=== PATIENT | male | born 1975 | race Caucasian/White ===

== ENCOUNTER 2020-02-27 09:47 | Outpatient (CLI) | payer OTHER, SELFPAY ==
--- NOTE | ~2020-02-27 | MR_ITS ---
EXAMINATION: MR brain/brain stem wo con EXAM DATE: 02/27/2020 10:43 INDICATION: Seizure. TECHNIQUE: Magnetic resonance imaging (MRI) of the brain/brain stem obtained without contrast. Sagitt al T1, axial diffusion, gradient echo (T2*), T1, T2, FLAIR sequences obtained. Seizure protocol was utilized including high-resolution coronal images through the hippocampi. There is no prior study fo r comparison. FINDINGS: The hippocampi are symmetric and are without signal abnormality identified. There are no g ray matter heterotopias identified or evidence of cortical dysplasia. There are no areas of restrict ed diffusion to suggest acute infarction. There is no acute hemorrhage seen on the T2*, a hemosideri n sensitive sequence. No intraparenchymal brain mass. The ventricles are normal in size. There are no extra-axial collections. Flow voids are seen in the cerebral arteries on the T2-weighted sequence s consistent with their expected patency. The orbits are unremarkable. Soft tissue is unremarkable. Mild medial periosteal thickening. IMPRESSION: 1. Unremarkable brain MRI examination. Reviewed, dictated and finalized at location A. [employer]
--- NOTE | 2020-02-29 10:03 | P.NEURO_ITS ---
Neurology EEG Report General Information Date of Study: 02/27/20 TEST eeg DIAGNOSIS seizures CONDITION OF RECORDING awake drowsy and sleep EEG NUMBER [id number] CLINICAL HISTORY patient reported he has had 2 episodes of seizure-like activity 1st one was witnessed he was banging his head on the table and 2nd episode he just spaced out for a while. EEG DESCRIPTION basic resting occipital frequency consists of low to medium voltage 8 to 10 her tz pers econd alpha admixed with low-voltage 15 to 18 hertz per second beta activity. bilateral symmetrical sleep activity seen during sleep with intermittent EKG artifacts. hyperventilation not done .photic stimulation produced normal drive. non paroxysmal. nonfocal. nonlateralizing IMPRESSION no significant abnormalities noted
== END 2020-02-27 09:48 | disposition home or self-care (01) ==
LOC: ANHIMG 09:52
PROVIDERS: PCP Family Medicine; Visit Provider Psychiatry & Neurology Neurology
DX: R56.9 Unspecified convulsions (principal)
CPT/HCPCS: 70551; 95816

== ENCOUNTER 2021-04-02 08:37 | Emergency (ER) | payer OTHER, SELFPAY ==
[2021-04-02 08:53] VITALS: BP 127/71; PULSE 82; RESP 18; TEMP 36.3; O2SAT 100
--- NOTE | 2021-04-02 09:24 | ED.GENADULT ---
HPI - General Adult General Chief complaint: Ear Stated complaint: ear pain Source: patient Mode of arrival: ambulatory Limitations: no limitations History of Present Illness HPI narrative: Patient is a 45-year-old male who presents to the [facility] via POV for evaluation of left ear pain that has been present for approximately 3 weeks. Additionally, he reports his pain to be constant and sharp in nature. No relief with Tylenol. Heat improves pain. Nothing worsens symptoms. Of note, patient reports he tested positive for Covid approximately 2 weeks ago and states his ear pain worsened about a week into having Covid. Related Data Home Medications Medication Instructions Recorded Confirmed warfarin 5 mg PO DAILY 03/31/19 04/02/21 bupropion HCl 300 mg PO DAILY 04/02/21 04/02/21 buspirone 15 mg PO DAILY 04/02/21 04/02/21 clonidine HCl 0.2 mg PO DAILY 04/02/21 04/02/21 escitalopram oxalate 10 mg PO DAILY 04/02/21 04/02/21 levetiracetam 500 mg PO DAILY 04/02/21 04/02/21 quetiapine 100 mg PO DAILY 04/02/21 04/02/21 Allergies Allergy/AdvReac Type Severity Reaction Status Date / Time morphine Allergy Mild HIVES Verified 04/02/21 09:19 Review of Systems Review of Systems: Pertinent negatives fever, chills, sweats, change in appetite, poor p.o. intake, malaise, headache, rhinorrhea, sinus problems, tinnitus, vertigo, lightheadedness, hearing loss, muffled hearing, ear drainage, nausea, vomiting, sore throat, cough, shortness of breath, lymphadenopathy, chest pain, heart palpitations, and heart murmur. [facility] Past Medical History Medical History (Updated 04/02/21 @ 09:49 by Yolanda Schrader, [employer], ) Anxiety Depression Pulmonary embolism Seizure disorder Comments I have reviewed and agree with the patient's past medical, surgical, social, and family hx as documented by the RN. There is no relevant family history pertinent to the presenting complaint. Exam Narrative: GENERAL: Well-appearing, well-nourished, and in no acute distress. HEAD: Normocephalic, atraumatic. No sinus tenderness or facial swelling appreciated. EYES: PERRLA and EOMI. No evidence of erythema, swelling, or drainage. ENT: Unable to visualize left TM secondary to moderate otitis externa. Right TM and ear canal normal. Nares clear, no rhinorrhea or epistaxis. Bilateral turbinates without erythema/ swelling. Mucous membranes moist and pink. Uvula is midline without erythema and swelling. Posterior pharynx is normal. Breath odor and voice normal. NECK: Supple. No Lymphadenopathy or nuchal rigidity appreciated. CHEST: Bilateral lung jha are clear to auscultation. No respiratory distress. No evidence of cough or pleuritic cp upon examination. HEART: Regular rate and rhythm. No murmur, gallop, or rub heard. EXTREMITIES: Normal range of motion. No edema. SKIN: Warm, dry, no rash. NEURO: No focal deficits. Alert and oriented x3. Course Course Emergency Course: Amoxicillin for empirical treatment of otitis media since poor visualization of left TM Vital Signs Vital signs: Vital Signs Temperature 97.3 F L 04/02/21 08:53 Pulse Rate 82 04/02/21 08:53 Respiratory Rate 18 04/02/21 08:53 Blood Pressure 127/71 04/02/21 08:53 Pulse Oximetry 100 04/02/21 08:53 Temperature 97.3 F L 04/02/21 08:53 Pulse Rate 82 04/02/21 08:53 Respiratory Rate 18 04/02/21 08:53 Blood Pressure 127/71 04/02/21 08:53 Pulse Oximetry 100 04/02/21 08:53 Reviewed Medical Decision Making Differential Diagnosis Differential Diagnosis: Otitis externa, barotrauma, eustachian tube dysfunction, AOM, OME, herpes zoster infection, acute mastoiditis, malignancy Vital Signs Vital Signs: Vital Signs Temperature 97.3 F L 04/02/21 08:53 Pulse Rate 82 04/02/21 08:53 Respiratory Rate 18 04/02/21 08:53 Blood Pressure 127/71 04/02/21 08:53 Pulse Oximetry 100 04/02/21 08:53 Temperature 97.3 F L 04/02/21 08:53 Pulse Rat
== END 2021-04-02 09:47 | disposition home or self-care (01) ==
PROVIDERS: Emergency Provider Nurse Practitioner Family; PCP Family Medicine
DX: H66.92 Otitis media, unspecified, left ear (principal); H60.502 Unspecified acute noninfective otitis externa, left ear; F41.9 Anxiety disorder, unspecified; F32.A Depression, unspecified; Z86.711 Personal history of pulmonary embolism; G40.909 Epilepsy, unspecified, not intractable, without status epilepticus; Z79.01 Long term (current) use of anticoagulants; Z86.16 Personal history of COVID-19
CPT/HCPCS: 99213; G0463

== ENCOUNTER 2022-04-08 09:24 | Emergency (ER) | payer OTHER, SELFPAY ==
[2022-04-08 10:36] VITALS: BP 106/62; PULSE 88; RESP 16; TEMP 36.2; O2SAT 98
--- NOTE | 2022-04-08 10:46 | ED.URI ---
HPI - URI/Sore Throat General Chief Complaint: Upper Respiratory Infection Stated Complaint: flu sx Time Seen by Provider: 04/08/22 10:47 Source: patient and RN notes reviewed Mode of arrival: ambulatory Limitations: no limitations History of Present Illness HPI Narrative: 46 y/o male presented for c/o fever up to 101, congestion, cough for 3 days. Endorses nausea, vomiting and decreased appetite. Denies abdominal pain, sob, wheezing, cp, palpitations. Taking Tylenol and ibuprofen for symptoms. Endorses sick contacts with unknown illness. Smokes 1/2ppd. Not vaccinated for covid/flu. Hx seizures, PE, congenital heart defect/repair, anxiety/depression. MD elicited complaint: cough Related Data Home Medications Medication Instructions Recorded Confirmed warfarin 5 mg tablet 5 mg PO DAILY 03/31/19 04/08/22 bupropion HCl 300 mg 24 hr tablet, 300 mg PO DAILY 04/02/21 04/08/22 extended release buspirone 15 mg tablet 15 mg PO DAILY 04/02/21 04/08/22 clonidine HCl 0.2 mg tablet 0.2 mg PO DAILY 04/02/21 04/08/22 escitalopram oxalate 10 mg tablet 10 mg PO DAILY 04/02/21 04/08/22 levetiracetam 500 mg tablet 500 mg PO DAILY 04/02/21 04/08/22 quetiapine 100 mg tablet 100 mg PO DAILY 04/02/21 04/08/22 Allergies Allergy/AdvReac Type Severity Reaction Status Date / Time morphine Allergy Mild HIVES Verified 04/08/22 10:29 Review of Systems Review of Systems: per HPI [facility] Past Medical History Medical History Anxiety Depression Pulmonary embolism Seizure disorder Exam Narrative: GENERAL: Ill-appearing, nontoxic EYES: PERRLA, conjunctivae clear ENT: Mucous membranes moist. TMs pearly zaragoza with dull light reflex bilaterally; no tragal tenderness. Oropharynx erythematous without lesions or exudate CHEST: Clear to auscultation, breath sounds equal. No wheezing, rhonchi, rales, or stridor. No respiratory distress, speaks in full sentences. HEART: Regular rate and rhythm. Murmur noted. SKIN: Warm, dry, no rash. MUSC: kyphosis. NEURO: Alert and oriented x3. PSYCH: Normal mood and affect Course Course Emergency Course: Patient is aware of diagnosis, understands and agrees to treatment plan. Anticipatory guidance given. Patient agrees to follow-up as directed and is aware of reasons to seek care at the emergency department. Portions of this record may have been created with voice recognition software Level of Care: Express Care Visit Vital Signs Vital signs: Vital Signs Temperature 97.2 F L 04/08/22 10:36 Pulse Rate 88 04/08/22 10:36 Respiratory Rate 16 04/08/22 10:36 Blood Pressure 106/62 04/08/22 10:36 Pulse Oximetry 98 04/08/22 10:36 Oxygen Delivery Room Air 04/08/22 10:36 Temperature 97.2 F L 04/08/22 10:36 Pulse Rate 88 04/08/22 10:36 Respiratory Rate 16 04/08/22 10:36 Blood Pressure 106/62 04/08/22 10:36 Pulse Oximetry 98 04/08/22 10:36 Oxygen Delivery Room Air 04/08/22 10:36 reviewed MDM - URI/Sore Throat MDM Narrative Medical decision making narrative: Result of COVID reviewed with patient. Advised supportive measures and signs/symptoms to go to the ER. Pt is appropriate for outpt treatment and f/u. Differential Diagnosis Differential diagnosis: Likely upper respiratory infection, sinusitis and viral infection Discharge Plan Discharge Clinical Impression: Viral infection Patient Disposition: Home, Self-Care Condition: Stable Instructions: Viral Syndrome (ED) Additional Instructions: COVID test was negative today. You should avoid crowds until you are fever free for 24 hours without the use of fever reducing medications, or the symptoms are improved Rest. Drink plenty of fluids. Tylenol 1000mg every 8 hours as needed for pain/fever Recommend Flonase spray and Zyrtec (or Claritin/Cindy) for sinus pressure/congestion over the counter Cough syrup may cause drowsiness; avoid driving or gianni
== END 2022-04-08 11:25 | disposition home or self-care (01) ==
PROVIDERS: Emergency Provider Nurse Practitioner Family
DX: B34.9 Viral infection, unspecified (principal); Z20.822 Contact with and (suspected) exposure to COVID-19; F41.9 Anxiety disorder, unspecified; F32.A Depression, unspecified; G40.909 Epilepsy, unspecified, not intractable, without status epilepticus; Z86.711 Personal history of pulmonary embolism; Z79.01 Long term (current) use of anticoagulants; F17.200 Nicotine dependence, unspecified, uncomplicated; Z28.310 Unvaccinated for COVID-19
CPT/HCPCS: 87426; 99213; C9803; G0463

== ENCOUNTER 2022-07-18 19:41 | Emergency (ER) | payer OTHER, SELFPAY ==
--- NOTE | 2022-07-18 19:42 | ED.WOUNDLAC ---
HPI - Wound/Laceration General Chief Complaint: Skin/Abscess/Foreign Body Stated Complaint: Right Hand Laceration Time Seen by Provider: 07/18/22 19:42 Source: patient Mode of arrival: ambulatory Limitations: no limitations History of Present Illness HPI narrative: Bruno is a 46-year-old male patient presenting to the clinic today with complaints of right hand laceration. He reports he cut his proximal volar aspect of the right ring finger at work on a piece of metal. Tetanus status is unknown. Bleeding is controlled. Patient is taking Coumadin. Related Data Home Medications Medication Instructions Recorded Confirmed warfarin 5 mg tablet 5 mg PO DAILY 03/31/19 07/18/22 bupropion HCl 300 mg 24 hr tablet, 300 mg PO DAILY 04/02/21 07/18/22 extended release buspirone 15 mg tablet 15 mg PO DAILY 04/02/21 07/18/22 clonidine HCl 0.2 mg tablet 0.2 mg PO DAILY 04/02/21 07/18/22 escitalopram oxalate 10 mg tablet 10 mg PO DAILY 04/02/21 07/18/22 lamotrigine 100 mg tablet 100 mg PO DAILY 07/18/22 07/18/22 quetiapine 200 mg tablet 200 mg PO DAILY 07/18/22 07/18/22 quetiapine 400 mg tablet 400 mg PO DAILY 07/18/22 07/18/22 Allergies Allergy/AdvReac Type Severity Reaction Status Date / Time No Known Allergies Allergy Verified 07/18/22 19:58 Review of Systems Review of Systems: Pertinent positives per HPI. Patient denies any fever, chills, rash, headache, visual changes, dizziness, cough, runny nose, sore throat, shortness of breath, chest pain, palpitations, nausea, vomiting, diarrhea, constipation, abdominal pain, or any urinary issues. PMFSH Past Medical History Medical History Anxiety Depression Pulmonary embolism Seizure disorder Comments At the time of my signature, I reviewed and agree with the nursing past medical, surgical, social, and family history. There is no relevant family history pertinent to the patient complaint. Exam Narrative: General: Well-developed, well nourished, in no apparent distress Head: Normocephalic, atraumatic. Cardio: Regular rate and rhythm, s1 and s2 normal, no murmur appreciated. Resp: Clear to auscultation bilaterally, no rhonchi, rales, wheezing or rubs. Integumentary: Ebro, warm, and dry, 1 cm flap skin laceration to the proximal volar aspect of the right 4th finger. Bleeding is controlled Course Course Emergency Course: Portions of this record may have been created with voice recognition software. Level of Care: Express Care Visit Vital Signs Vital signs: Vital Signs Temperature 37.0 C 07/18/22 19:50 Pulse Rate 106 H 07/18/22 19:50 Respiratory Rate 18 07/18/22 19:50 Blood Pressure 119/74 07/18/22 19:50 Pulse Oximetry 98 07/18/22 19:50 Oxygen Delivery Room Air 07/18/22 19:50 Temperature 37.0 C 07/18/22 19:50 Pulse Rate 106 H 07/18/22 19:50 Respiratory Rate 18 07/18/22 19:50 Blood Pressure 119/74 07/18/22 19:50 Pulse Oximetry 98 07/18/22 19:50 Oxygen Delivery Room Air 07/18/22 19:50 Vital signs reviewed Procedures Laceration Laceration 1: Date: 07/18/22 Site: hand (Right proximal volar aspect ring finger) Side (If applicable): right Size (cm): 1 Description: flap Depth: simple, single layer Local Anesthetic: lidocaine 1% Amount of anesthesia used (mL): 2 Pre-repair: wound explored and irrigated ====== Skin Level ====== Skin layer closed with: nylon Size (cm): 5-0 Number of sutures: 2 Technique: simple, interrupted ====== Subcutaneous Layer ====== ====== Muscle Layer ====== ====== Tendon Layer ====== Dressing: Verbal consent obtained for laceration repair. Risk and benefits explained and patient voiced understanding. Area was cleansed with Techni care and a 25 gauge needle was then used to instill (2) ml of 1% lidocaine without epi into the wou
[2022-07-18 19:50] VITALS: BP 119/74; PULSE 106; RESP 18; TEMP 37; O2SAT 98
[2022-07-18] MEDS: TETANUS,DIPHTHERIA,AC PERTUSSIS ADULT (0.5 ML) BOOSTRIX IM (19:55)
== END 2022-07-18 20:25 | disposition home or self-care (01) ==
LOC: EXPCOLL 19:46
PROVIDERS: Emergency Provider Nurse Practitioner Family
DX: S61.214A Laceration without foreign body of right ring finger without damage to nail, initial encounter (principal); Z79.01 Long term (current) use of anticoagulants; Z23 Encounter for immunization; W26.8XXA Contact with other sharp object(s), not elsewhere classified, initial encounter; Y99.0 Civilian activity done for income or pay
CPT/HCPCS: 12001; 90471; 90715; 99212; G0463

== ENCOUNTER 2022-07-25 14:18 | Emergency (ER) | payer OTHER, SELFPAY ==
[2022-07-25 14:20] VITALS: BP 100/60; PULSE 98; RESP 18; TEMP 36.8; O2SAT 98
--- NOTE | 2022-07-25 14:33 | ED.WOUNDLAC ---
HPI - Wound/Laceration General Chief Complaint: Wound/Laceration Stated Complaint: stitches removal Time Seen by Provider: 07/25/22 14:26 Source: patient Mode of arrival: ambulatory Limitations: no limitations History of Present Illness HPI narrative: Patient presents today for suture removal. He had 2 sutures placed on 07/18/2022 at [facility] after cutting his right hand at work. Denies any difficulties with the sutures and states that is healing well. Related Data Home Medications Medication Instructions Recorded Confirmed warfarin 5 mg tablet 5 mg PO DAILY 03/31/19 07/25/22 clonidine HCl 0.2 mg tablet 0.2 mg PO DAILY 04/02/21 07/25/22 escitalopram oxalate 10 mg tablet 10 mg PO DAILY 04/02/21 07/25/22 lamotrigine 100 mg tablet 100 mg PO DAILY 07/18/22 07/25/22 quetiapine 200 mg tablet 200 mg PO DAILY 07/18/22 07/25/22 quetiapine 400 mg tablet 400 mg PO DAILY 07/18/22 07/25/22 Allergies Allergy/AdvReac Type Severity Reaction Status Date / Time No Known Allergies Allergy Verified 07/25/22 14:25 Review of Systems Review of Systems: CONSTITUTIONAL: Denies body aches, fever, chills, or sweats. EYES: Denies visual changes, redness, or discharge. ENT: Denies rhinorrhea, congestion, sore throat, or otalgia. CARDIOVASCULAR: Denies chest pain, palpitations, or edema. RESPIRATORY: Denies cough or dyspnea. GASTROINTESTINAL: Denies abdominal pain, nausea, vomiting, or diarrhea. GENITOURINARY: Denies dysuria or hematuria. SKIN: Denies rash, itching. + right hand laceration MUSCULOSKELETAL: Denies back pain, joint pain, or myalgia. NEUROLOGIC: Denies headache, numbness, tingling, or weakness. PSYCH: Denies depression or anxiety. [facility] Past Medical History Medical History Anxiety Depression Pulmonary embolism Seizure disorder Comments At time of signature, I have reviewed and agree with nursing past medical, surgical, social and family history unless otherwise noted. Please see nursing chart for further information. There is no relevant family history pertinent to the presenting complaint Exam Narrative: GENERAL: Well-appearing, well-nourished, and in no acute distress. HEAD: Normocephalic, atraumatic. EYES: EOMI. No redness or drainage. Conjunctivae normal. ENT: Mucous membranes pink and moist. NECK: Normal AROM. CHEST: No respiratory distress. EXTREMITIES: Normal range of motion. No edema. SKIN: Warm, dry, no rash. Capillary refill normal. Normal skin turgor. Two intact sutures at the base of the right 4th finger on the palmar aspect. No signs of infection. NEURO: No focal deficits. Alert and oriented x3. Gait steady. PSYCH: Normal affect. No signs of depression or anxiety. Course Course Level of Care: Express Care Visit Procedures Other Procedure Procedure 1: Other Procedure: Two sutures removed successfully. Patient tolerated procedure well. MDM - Wound/Laceration MDM Narrative Medical decision making narrative: Sutures removed successfully. No signs of infection. No prescription medications indicated at this time. Anticipatory guidance given. Differential Diagnosis Differential diagnosis: Likely laceration, abscess and other (Suture removal) Critical Care Time Critical Care Time Critical Care Time: No Discharge Plan Discharge Clinical Impression: Encounter for removal of sutures Patient Disposition: Home, Self-Care Condition: Stable Instructions: Stitches Removal (ED) Additional Instructions: Your sutures have been successfully removed. There are no signs of infection present. Follow-up with your PCP with any concerns. Prescriptions: No Action clonidine HCl 0.2 mg tablet 0.2 mg PO DAILY escitalopram oxalate 10 mg tablet 10 mg PO DAILY quetiapine 200 mg tablet 200 mg PO DAILY lamotrigine 100 mg tablet 100 mg PO DAILY quetiapine 400 mg tablet 400 mg PO MARBELLA
== END 2022-07-25 14:43 | disposition home or self-care (01) ==
PROVIDERS: Emergency Provider Nurse Practitioner
DX: Z48.02 Encounter for removal of sutures (principal)
CPT/HCPCS: 99211; G0463

== ENCOUNTER 2022-08-24 10:14 | Emergency (ER) | payer OTHER, SELFPAY ==
[2022-08-24 10:21] VITALS: BP 103/58; PULSE 81; RESP 12; TEMP 36.9; O2SAT 99
--- NOTE | 2022-08-24 11:01 | ED.SKABFB ---
HPI - Skin/Abscess/Foreign Bdy General Chief complaint: Dental/Oral Stated complaint: Lip Pain Time Seen by Provider: 08/24/22 11:02 Source: patient Mode of arrival: ambulatory History of Present Illness HPI narrative: 46-year-old male presented for complaint of left lower facial pain and swelling since yesterday. Endorses pain with opening the mouth and eating. Endorses broken teeth throughout. States symptoms are similar to when he had 'cellulitis' a few years ago. He does not have a dentist. Taking ibuprofen for pain and using Orajel mouthwash. Denies n/v/d/f/c. Hx PE, seizure; taking warfarin. Related Data Home Medications Medication Instructions Recorded Confirmed warfarin 5 mg tablet 5 mg PO DAILY 03/31/19 08/24/22 clonidine HCl 0.2 mg tablet 0.2 mg PO DAILY 04/02/21 08/24/22 escitalopram oxalate 10 mg tablet 10 mg PO DAILY 04/02/21 08/24/22 lamotrigine 100 mg tablet 100 mg PO DAILY 07/18/22 08/24/22 quetiapine 200 mg tablet 200 mg PO DAILY 07/18/22 08/24/22 quetiapine 400 mg tablet 400 mg PO DAILY 07/18/22 08/24/22 Allergies Allergy/AdvReac Type Severity Reaction Status Date / Time No Known Allergies Allergy Verified 08/24/22 10:27 Review of Systems Review of Systems: CONSTITUTIONAL: Denies body aches, fever, chills ENT: Denies rhinorrhea, congestion, sore throat, or otalgia. Reports left lower jaw pain/swelling CARDIOVASCULAR: Denies chest pain, palpitations RESPIRATORY: Denies cough or dyspnea. SKIN: Denies rash, itching, or wounds. MUSCULOSKELETAL: Denies myalgia. NEUROLOGIC: Denies headache, numbness, tingling, or weakness. [facility] Past Medical History Medical History Anxiety Depression Pulmonary embolism Seizure disorder Comments At time of signature, I have reviewed and agree with nursing past medical, surgical, social and family history unless otherwise noted. Please see nursing chart for further information. There is no relevant family history pertinent to the presenting complaint Exam Narrative: GENERAL: Appears in pain; no acute distress. HEAD: Normocephalic, Left lower jaw swelling without erythema or fluctuance EYES: EOMI. No redness or drainage. Conjunctivae normal. ENT: Dental pain to left lower jaw, tender with palpation, multiple broken/missing teeth and caries throughout. Pain with opening mouth. Maintaining secretions. Mucous membranes pink and moist. TMs normal bilaterally. Throat normal. Uvula midline. NECK: Normal AROM. No lymphadenopathy. CHEST: Clear to auscultation. HEART: Regular rate and rhythm. No murmur appreciated. SKIN: Warm, dry, no rash. Normal skin turgor. NEURO: Alert and oriented x3. Gait steady. Course Course Emergency Course: Patient is aware of diagnosis, understands and agrees to treatment plan. Anticipatory guidance given. Patient agrees to follow-up as directed and is aware of reasons to seek care at the emergency department. Portions of this record may have been created with voice recognition software Level of Care: Express Care Visit Vital Signs Vital signs: Vital Signs Temperature 98.5 F 08/24/22 10:21 Pulse Rate 81 08/24/22 10:21 Respiratory Rate 12 08/24/22 10:21 Blood Pressure 103/58 L 08/24/22 10:21 Pulse Oximetry 99 08/24/22 10:21 Oxygen Delivery Room Air 08/24/22 10:21 Temperature 98.5 F 08/24/22 10:21 Pulse Rate 81 08/24/22 10:21 Respiratory Rate 12 08/24/22 10:21 Blood Pressure 103/58 L 08/24/22 10:21 Pulse Oximetry 99 08/24/22 10:21 Oxygen Delivery Room Air 08/24/22 10:21 MDM - Skin/Abscess/Foreign Bdy MDM Narrative Medical decision making narrative: Patient reported concern for facial cellulitis. Suspect left lower dental abscess due to multiple broken teeth and caries, tender throughout left gumline. There are no focal signs of space occupying lesions that are compromising to the airway; no dysphagia, odynoph
== END 2022-08-24 11:17 | disposition home or self-care (01) ==
PROVIDERS: Emergency Provider Nurse Practitioner Family
DX: K04.7 Periapical abscess without sinus (principal); F41.9 Anxiety disorder, unspecified; F32.A Depression, unspecified; G40.909 Epilepsy, unspecified, not intractable, without status epilepticus; Z86.711 Personal history of pulmonary embolism; Z79.01 Long term (current) use of anticoagulants
CPT/HCPCS: 99213; G0463

== ENCOUNTER 2023-04-10 09:12 | Emergency (ER) | payer OTHER, SELFPAY ==
[2023-04-10 09:26] VITALS: BP 135/71; PULSE 96; RESP 16; TEMP 38.3; O2SAT 96
--- NOTE | 2023-04-10 09:43 | ED.NAVMDI ---
HPI - Nausea/Vomiting/Diarrhea General Chief complaint: Nausea/Vomiting/Diarrhea Stated complaint: fever,throwing up,aches Time Seen by Provider: 04/10/23 09:43 Source: patient and RN notes reviewed Mode of arrival: ambulatory Limitations: no limitations History of Present Illness HPI Narrative: 47-year-old male presented for complaint of nausea and vomiting with fever and body aches for 5 days. He has been unable to keep any food down. He is attempting water and V-8 fruit juice but vomits often. Last emesis was this morning. Also reports bilateral flank pain and dark urine. Not taking anything for symptoms. Denies sob, wheezing, cp, palpitations or lethargy. Smokes 1/2ppd. Endorses sick coworkers. Related Data Home Medications Medication Instructions Recorded Confirmed warfarin 5 mg tablet 5 mg PO DAILY 03/31/19 04/10/23 clonidine HCl 0.2 mg tablet 0.2 mg PO DAILY 04/02/21 04/10/23 escitalopram oxalate 10 mg tablet 10 mg PO DAILY 04/02/21 04/10/23 lamotrigine 100 mg tablet 100 mg PO DAILY 07/18/22 04/10/23 quetiapine 200 mg tablet 200 mg PO DAILY 07/18/22 04/10/23 quetiapine 400 mg tablet 400 mg PO DAILY 07/18/22 04/10/23 Allergies Allergy/AdvReac Type Severity Reaction Status Date / Time No Known Allergies Allergy Verified 04/10/23 09:19 Review of Systems Review of Systems: CONSTITUTIONAL: Reports body aches, fever, chills ENT: Denies rhinorrhea, congestion CARDIOVASCULAR: Denies chest pain, palpitations, or edema. RESPIRATORY: Denies cough or dyspnea. GASTROINTESTINAL: Endorses nausea, vomiting Denies abdominal pain, diarrhea, hematochezia, melena, hematemesis GENITOURINARY: Denies dysuria, hematuria reports bilateral CVA tenderness. SKIN: Denies rash, itching, or wounds. MUSCULOSKELETAL: Denies joint pain NEUROLOGIC: Denies headache, numbness, tingling, or weakness. All systems reviewed & are unremarkable except as noted in HPI and below PMFSH Past Medical History Medical History (Updated 04/10/23 @ 14:31 by Sakshi Villanueva APRN) Anxiety Depression Pulmonary embolism Seizure disorder Surgical History Surgical History (Updated 12/29/23 @ 09:54 by Sakshi Villanueva APRN) History of open heart surgery Social History Social History (Updated 04/10/23 @ 09:54 by Sakshi Villanueva APRN) Smoking packs per day: 0.5 Smoking cigarettes per day: 10.0 Smoking status: Current every day smoker Comments At time of signature, I have reviewed and agree with nursing past medical, surgical, social and family history unless otherwise noted. Please see nursing chart for further information. There is no relevant family history pertinent to the presenting complaint Exam Narrative: GENERAL: ill-appearing, no acute distress EYES: Conjunctivae normal. ENT: Mucous membranes pink and moist. CHEST: No respiratory distress. Clear to auscultation. panting HEART: Regular rate and rhythm. No murmur appreciated. Normal peripheral pulses. ABDOMEN: abd soft, nondistended, normal active bowel sounds. Tender abdomen, generalized; mild guarding no rebound tenderness, asymmetry. Bilateral CVA tenderness. EXTREMITIES: Normal range of motion. No edema. Severe scoliosis SKIN: Warm, dry, no rash. Capillary refill normal. NEURO: No focal deficits. Alert and oriented x3. Course Course Emergency Course: Patient is aware of diagnosis, understands and agrees to treatment plan. Anticipatory guidance given. Patient agrees to follow-up as directed and is aware of reasons to seek care at the emergency department. Portions of this record may have been created with voice recognition software Level of Care: Express Care Visit Vital Signs Vital signs: Vital Signs Temperature 100.9 F H 04/10/23 09:26 Pulse Rate 96 04/10/23 09:26 Respiratory Rate 16 04/10/23 09:26 Blood Pressure 135/71 04/10/23 09:26 Pulse Oximetry 96 04/10/23 09:26 Oxygen Delivery Room Air 04/10/23 09:26 Temperature 1
[2023-04-10] MEDS: ONDANSETRON HCL ODT 4 MG TABLET SUBLINGUAL (10:04)
== END 2023-04-10 10:42 | disposition short-term general hospital (02) ==
PROVIDERS: Emergency Provider Nurse Practitioner Family
DX: U07.1 COVID-19 (principal); R11.10 Vomiting, unspecified; F17.210 Nicotine dependence, cigarettes, uncomplicated; F41.9 Anxiety disorder, unspecified; F32.A Depression, unspecified; G40.909 Epilepsy, unspecified, not intractable, without status epilepticus; Z86.711 Personal history of pulmonary embolism
CPT/HCPCS: 87426; 87804; 99213; A9270; C9803; G0463

== ENCOUNTER 2023-08-15 08:57 | Emergency (ER) | payer OTHER, SELFPAY ==
[2023-08-15 09:08] VITALS: BP 128/81; PULSE 77; RESP 16; TEMP 35.8; O2SAT 99
--- NOTE | 2023-08-15 09:17 | ED.BACK ---
HPI - Back Pain/Injury General Chief Complaint: Back Pain/Injury Stated Complaint: Back pain work note Time Seen by Provider: 08/15/23 09:10 Source: patient Mode of arrival: ambulatory Limitations: no limitations History of Present Illness HPI Narrative: Bruno is a 47-year-old male patient presenting to the clinic today with complaints of chronic right-sided thoracic back pain. Patient suffers from kyphosis. 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 States he had a call in to work today due to the back pain. He denies any saddle anesthesia or loss of bowel or bladder. He denies any injury to his back. States he is really just needing a work note for today as he called in. Denies any other concerns. Related Data Home Medications Medication Instructions Recorded Confirmed warfarin 5 mg tablet 5 mg PO DAILY 03/31/19 08/15/23 clonidine HCl 0.2 mg tablet 0.2 mg PO DAILY 04/02/21 08/15/23 lamotrigine 100 mg tablet 100 mg PO DAILY 07/18/22 08/15/23 quetiapine 200 mg tablet 200 mg PO DAILY 07/18/22 08/15/23 quetiapine 400 mg tablet 400 mg PO DAILY 07/18/22 08/15/23 escitalopram oxalate 20 mg tablet 20 mg PO DAILY 08/15/23 08/15/23 Allergies Allergy/AdvReac Type Severity Reaction Status Date / Time No Known Allergies Allergy Verified 08/15/23 08:59 Review of Systems Review of Systems: Pertinent positives per HPI. Patient denies any fever, chills, rash, headache, visual changes, dizziness, cough, runny nose, sore throat, shortness of breath, chest pain, palpitations, nausea, vomiting, diarrhea, constipation, abdominal pain, or any urinary issues. [facility] Past Medical History Medical History Anxiety Depression Pulmonary embolism Seizure disorder Surgical History Surgical History History of open heart surgery Social History Social History Smoking packs per day: 0.5 Smoking cigarettes per day: 10.0 Smoking status: Current every day smoker Comments At the time of my signature, I reviewed and agree with the nursing past medical, surgical, social, and family history. There is no relevant family history pertinent to the patient complaint. Exam Narrative: General: Well-developed, well nourished, in no apparent distress Head: Normocephalic, atraumatic. Cardio: Regular rate and rhythm, s1 and s2 normal, no murmur appreciated. Resp: Clear to auscultation bilaterally, no rhonchi, rales, wheezing or rubs. Musculoskeletal: Kyphosis over the thoracic spine, tender to palpation over the right thoracic spine over the paraspinal musculature, discomfort with flexion and extension of the thoracic spine, muscle strength strong and equal, peripheral pulse strong, no edema, no cyanosis, normal gait and station Course Course Emergency Course: Portions of this record may have been created with voice recognition software. Level of Care: Express Care Visit Vital Signs Vital signs: Vital Signs Temperature 35.8 C L 08/15/23 09:08 Pulse Rate 77 08/15/23 09:08 Respiratory Rate 16 08/15/23 09:08 Blood Pressure 128/81 08/15/23 09:08 Pulse Oximetry 99 08/15/23 09:08 Oxygen Delivery Room Air 08/15/23 09:08 Temperature 35.8 C L 08/15/23 09:08 Pulse Rate 77 08/15/23 09:08 Respiratory Rate 16 08/15/23 09:08 Blood Pressure 128/81 08/15/23 09:08 Pulse Oximetry 99 08/15/23 09:08 Oxygen Delivery Room Air 08/15/23 09:08 Vital signs reviewed MDM - Back Pain/Injury MDM Narrative Medical decision making narrative: At the time of visit patient is resting comfortably on the exam table. Patient appears to be nontoxic. Plan: I suspect patient has chronic back pain due to kyphosis. Work note was given. Supportive measures were discussed with the patient and they voiced understanding discharge instruct
== END 2023-08-15 09:27 | disposition home or self-care (01) ==
PROVIDERS: Emergency Provider Nurse Practitioner Family
DX: G89.29 Other chronic pain (principal); M54.6 Pain in thoracic spine; F17.210 Nicotine dependence, cigarettes, uncomplicated; F41.9 Anxiety disorder, unspecified; F32.A Depression, unspecified; G40.909 Epilepsy, unspecified, not intractable, without status epilepticus; Z86.711 Personal history of pulmonary embolism
CPT/HCPCS: 99212; G0463

== ENCOUNTER 2023-09-26 12:20 | Emergency (ER) | payer OTHER, SELFPAY ==
--- NOTE | 2023-09-26 12:24 | ED.URI ---
HPI - URI/Sore Throat General Chief Complaint: Fever Stated Complaint: fever,bodyaches Time Seen by Provider: 09/26/23 12:35 Source: patient and RN notes reviewed Mode of arrival: ambulatory Limitations: no limitations History of Present Illness HPI Narrative: 48-year-old male presents with concern for fever and body aches. He denies sore throat, cough, nasal congestion, rhinorrhea, headache, stomachache, nausea, vomiting, diarrhea. He reports he has taken Tylenol. MD elicited complaint: fever Related Data Home Medications Medication Instructions Recorded Confirmed warfarin 5 mg tablet 5 mg PO DAILY 03/31/19 09/26/23 clonidine HCl 0.2 mg tablet 0.2 mg PO DAILY 04/02/21 09/26/23 lamotrigine 100 mg tablet 100 mg PO DAILY 07/18/22 09/26/23 quetiapine 200 mg tablet 200 mg PO DAILY 07/18/22 09/26/23 quetiapine 400 mg tablet 400 mg PO DAILY 07/18/22 09/26/23 escitalopram oxalate 20 mg tablet 20 mg PO DAILY 08/15/23 09/26/23 Allergies Allergy/AdvReac Type Severity Reaction Status Date / Time No Known Allergies Allergy Verified 09/26/23 12:36 Review of Systems Review of Systems: CONSTITUTIONAL: Reports malaise, fever. EYES: Denies visual changes, redness, or discharge. ENT: Denies rhinorrhea, congestion, sinus pain, otalgia and sore throat. CARDIOVASCULAR: Denies chest pain, palpitations, or edema. RESPIRATORY: Denies cough. Denies dyspnea. GASTROINTESTINAL: Denies abdominal pain, nausea, vomiting, diarrhea SKIN: Denies rash or itching. MUSCULOSKELETAL: Reports myalgia. NEUROLOGIC: Denies headache. All systems reviewed & are unremarkable except as noted in HPI and below PMFSH Past Medical History Medical History Anxiety Depression Pulmonary embolism Seizure disorder Surgical History Surgical History History of open heart surgery Social History Social History Smoking packs per day: 0.5 Smoking cigarettes per day: 10.0 Smoking status: Current every day smoker Comments At time of signature, agree with nursing past medical, surgical, social and family history. There is no relevant family history pertinent to the presenting complaint Exam Narrative: GENERAL: Well-appearing, well-nourished, and in no acute distress. HEAD: Normocephalic EYES: PERRLA, conjunctivae clear ENT: Nares clear. Mucous membranes moist. TM pearly zaragoza with sharp light reflex bilaterally; no tragal tenderness. Oropharynx not erythematous without lesions. Tonsils not enlarged and without exudate, no drooling, no hoarseness, no trismus, uvula midline. NECK: Supple. No lymphadenopathy CHEST: Clear to auscultation, breath sounds equal. No wheezing, rhonchi, rales, or stridor. No respiratory distress, speaks in full sentences. HEART: Regular rate and rhythm. No murmur heard. SKIN: Warm, dry, no rash. NEURO: Alert and oriented x3. PSYCH: Normal mood and affect Course Course Emergency Course: Patient is aware of diagnosis, understands and agrees to treatment plan. Anticipatory guidance given. Patient agrees to follow-up as directed and is aware of reasons to seek care at the emergency department. Portions of this record may have been created with voice recognition software Level of Care: Express Care Visit Vital Signs Vital signs: Reviewed. MDM - URI/Sore Throat MDM Narrative Medical decision making narrative: Differential diagnosis considered: Keith virus, strep pharyngitis, allergic rhinitis, upper respiratory tract infection, sinusitis, rhinosinusitis, nasopharyngitis. viral pharyngitis, otitis media, otitis externa, pneumonia, bronchitis, viral cough syndrome, viral syndrome, and influenza. Exam findings show no acute concerns or changes; patient is non-toxic appearing and is in no distress. Patient is appropriate for outpatient treatment and
[2023-09-26 12:34] VITALS: BP 106/69; PULSE 86; RESP 16; TEMP 36.9; O2SAT 98
== END 2023-09-26 12:49 | disposition home or self-care (01) ==
PROVIDERS: Emergency Provider Nurse Practitioner
DX: B34.9 Viral infection, unspecified (principal); F17.210 Nicotine dependence, cigarettes, uncomplicated; F41.9 Anxiety disorder, unspecified; F32.A Depression, unspecified; G40.909 Epilepsy, unspecified, not intractable, without status epilepticus; Z86.711 Personal history of pulmonary embolism
CPT/HCPCS: 99211; G0463

== ENCOUNTER 2024-01-23 08:18 | Emergency (ER) | payer SELFPAY ==
[2024-01-23 08:27] VITALS: BP 126/67; PULSE 68; RESP 20; TEMP 36.5; O2SAT 98
--- NOTE | 2024-01-23 08:43 | ED.DENTAL ---
HPI - Dental/Oral General Chief complaint: Dental/Oral Stated complaint: Dental Pain Time Seen by Provider: 01/23/24 08:38 Mode of arrival: ambulatory Limitations: no limitations History of Present Illness HPI Narrative: 48-year-old male presents with concern for left lower dental pain. Reports he woke up with a foul taste in his mouth this morning. Reports he has had some facial swelling. He denies fever or difficulty swallowing. Reports chronic problems with his teeth. MD Complaint: tooth pain Related Data Allergies Allergy/AdvReac Type Severity Reaction Status Date / Time No Known Allergies Allergy Verified 01/23/24 08:21 Review of Systems Review of Systems: CONSTITUTIONAL: Denies malaise, chills, sweats, or fever. EYES: Denies visual changes ENT: Denies rhinorrhea, congestion, sinus pain, otalgia or sore throat. Reports left lower dental pain CARDIOVASCULAR: Denies chest pain, palpitations RESPIRATORY: Denies cough or dyspnea. SKIN: Denies rash or itching. MUSCULOSKELETAL: Denies myalgia. NEUROLOGIC: Denies numbness, weakness, or headache. All systems reviewed & are unremarkable except as noted in HPI and below PMFSH Past Medical History Medical History Anxiety Depression Pulmonary embolism Seizure disorder Surgical History Surgical History History of open heart surgery Social History Social History Smoking packs per day: 0.5 Smoking cigarettes per day: 10.0 Smoking status: Current every day smoker Comments At time of signature, agree with nursing past medical, surgical, social and family history. There is no relevant family history pertinent to the presenting complaint Exam Narrative: GENERAL: Well-appearing, well-nourished, and in no acute distress. HEAD: Normocephalic, atraumatic. EYES: PERRLA, sclera clear ENT: Nares clear, turbinates pink, no rhinorrhea or epistaxis. Mucous membranes moist. TM pearly zaragoza with sharp light reflex bilaterally; no tragal tenderness. Oropharynx without erythema or lesions. Tonsils not enlarged and without exudate. Missing teeth, broken teeth, caries. Left cheek swelling noted NECK: Supple. No lymphadenopathy. CHEST: No respiratory distress. Speaks in full sentences. HEART: Regular rate and rhythm. SKIN: Warm, dry, no visible rash. NEURO: Alert and oriented x3. PSYCH: Normal mood and affect Course Course Emergency Course: Patient is aware of diagnosis, understands and agrees to treatment plan. Anticipatory guidance given. Patient agrees to follow-up as directed and is aware of reasons to seek care at the emergency department. Portions of this record may have been created with voice recognition software Level of Care: Express Care Visit Vital Signs Vital signs: Vital Signs Temperature 97.7 F 01/23/24 08:27 Pulse Rate 68 01/23/24 08:27 Respiratory Rate 20 01/23/24 08:27 Blood Pressure 126/67 01/23/24 08:27 Pulse Oximetry 98 01/23/24 08:27 Oxygen Delivery Room Air 01/23/24 08:27 Temperature 97.7 F 01/23/24 08:27 Pulse Rate 68 01/23/24 08:27 Respiratory Rate 20 01/23/24 08:27 Blood Pressure 126/67 01/23/24 08:27 Pulse Oximetry 98 01/23/24 08:27 Oxygen Delivery Room Air 01/23/24 08:27 Reviewed. MDM - Dental/Oral MDM Narrative Medical decision making narrative: I evaluated this in the [facility] care. History is obtained from patient who is an independent historian and physical exam was performed.? Available medical records were reviewed. ? Exam findings and relevant testing show no acute concerns or changes; patient is non-toxic appearing and is in no distress. Patients pain and complaint coupled with physical findings are consistant with dentalgia. There are no focal signs of space occupying lesions that are compro
== END 2024-01-23 08:55 | disposition home or self-care (01) ==
PROVIDERS: Emergency Provider Nurse Practitioner
DX: K08.89 Other specified disorders of teeth and supporting structures (principal); F17.210 Nicotine dependence, cigarettes, uncomplicated
CPT/HCPCS: 99213; G0463

== ENCOUNTER 2024-06-10 08:15 | Emergency (ER) | payer SELFPAY ==
[2024-06-10 08:23] VITALS: BP 131/75; PULSE 76; RESP 16; TEMP 37.4; O2SAT 100
--- NOTE | 2024-06-10 08:37 | ED.DENTAL ---
HPI - Dental/Oral General Chief complaint: Dental/Oral Stated complaint: Dental Pain Time Seen by Provider: 06/10/24 08:25 Source: patient Mode of arrival: ambulatory Limitations: no limitations History of Present Illness HPI Narrative: [age] year old Presents with left-sided dental pain swelling. afebrile. Patient reports that He has a dental appointment at and month. All systems reviewed and negative except as noted above. Related Data Allergies Allergy/AdvReac Type Severity Reaction Status Date / Time No Known Allergies Allergy Verified 06/10/24 08:26 Review of Systems Review of Systems: CONSTITUTIONAL: Denies fever, chills, or sweats. EYES: Denies visual changes, redness, or discharge. ENT: Denies rhinorrhea, congestion, sore throat, or otalgia. Reports left-sided dental pain with swelling. CARDIOVASCULAR: Denies chest pain, palpitations, or edema. RESPIRATORY: Denies cough or dyspnea. GASTROINTESTINAL: Denies abdominal pain, nausea, vomiting, or diarrhea. GENITOURINARY: Denies dysuria or hematuria. SKIN: Denies rash or itching. MUSCULOSKELETAL: Denies back pain, joint pain, or myalgia. NEUROLOGIC: Denies headache, numbness, or weakness. PSYCHIATRIC: Denies anxiety or depression. All other systems reviewed are negative, except as documented in HPI. PMFSH Past Medical History Medical History Anxiety Depression Pulmonary embolism Seizure disorder Surgical History Surgical History History of open heart surgery Social History Social History Smoking packs per day: 0.5 Smoking cigarettes per day: 10.0 Smoking status: Current every day smoker Comments At time of signature, agree with nursing past medical, surgical, social and family history. There is no relevant family history pertinent to the presenting complaint. Exam Narrative: GENERAL: This is a well-nourished, well-developed patient, in no apparent distress. HEAD: normocephalic, atraumatic. EYES: PERRL. Sclera clear/white. Vision is grossly intact. EARS: External ears normal NOSE: External nose normal MOUTH: Multiple decayed, broken teeth. No fluctuance concerning for abscess. Erythema and swelling to gums. NECK: Neck supple, non-tender without lymphadenopathy, masses or thyromegaly. CARDIOVASCULAR: Regular rate and rhythm without murmurs, gallops, or rubs. RESPIRATORY: Clear to auscultation. Breath sounds equal bilaterally. No wheezes, rales, or rhonchi. SKIN: warm, Dry, intact with no suspicious lesions or rash, good texture and turgor. NEURO: awake, alert, and oriented to person, place and time. There were no obvious focal neurologic abnormalities. EXTREMITIES: No joint tenderness, effusion, or edema noted. Course Course Level of Care: Express Care Visit Vital Signs Vital signs: Vital Signs Temperature 37.4 C 06/10/24 08:23 Pulse Rate 76 06/10/24 08:23 Respiratory Rate 16 06/10/24 08:23 Blood Pressure 131/75 06/10/24 08:23 Pulse Oximetry 100 06/10/24 08:23 Oxygen Delivery Room Air 06/10/24 08:23 Temperature 37.4 C 06/10/24 08:23 Pulse Rate 76 06/10/24 08:23 Respiratory Rate 16 06/10/24 08:23 Blood Pressure 131/75 06/10/24 08:23 Pulse Oximetry 100 06/10/24 08:23 Oxygen Delivery Room Air 06/10/24 08:23 Reviewed MDM - Dental/Oral MDM Narrative Medical decision making narrative: will treat patient with antibiotic for dental infection. Patient has appointment dentist in June. Patient is well-appearing, nontoxic. Please be advised this is a medical document. It is intended for [id number] communication. It is written in medical language and may contain unfamiliar abbreviations or verbiage. Medical documents are intended to carry relevant information, facts as evident, and the clinical opinion of the practitioner at the time of the encounter. This report may have been done utilizing a voice recognition system. Attempts have been made to correct errors. However, there may be uncorrected grammatical, spelling, and recognition errors present. The file time of this note does not necessarily represent the time of service. Discharge Plan Discharge Clinical Impression: Dental infection Patient Disposition: Home, Self-Care Condition: Stable Instructions: Antibiotic Form, Toothache (ED) Additional Instructions: take antibiotic as prescribed until gone. Take ibuprofen or Tylenol every 6-8 hours as needed for pain. Follow-up with your dentist at scheduled appointment. Patient Language: Prydeinig Prescriptions: New amoxicillin 875 mg tablet 875 mg PO Q12H 10 Days Qty: 20 0RF Follow-up/Referrals: PHYSICIAN,TOOL POLISHER [Primary Care Provider] - Time of Disposition: 08:34
== END 2024-06-10 08:40 | disposition home or self-care (01) ==
PROVIDERS: Emergency Provider Nurse Practitioner Family
DX: K04.7 Periapical abscess without sinus (principal); F17.210 Nicotine dependence, cigarettes, uncomplicated; Z86.711 Personal history of pulmonary embolism
CPT/HCPCS: 99213; G0463

== ENCOUNTER 2024-10-11 13:18 | Emergency (ER) | payer SELFPAY ==
[2024-10-11 13:26] VITALS: BP 116/64; PULSE 84; RESP 18; TEMP 37.2; O2SAT 99
--- NOTE | 2024-10-11 13:53 | ED.BACK ---
HPI - Back Pain/Injury General Chief Complaint: Back Pain/Injury Stated Complaint: back pain Time Seen by Provider: 10/11/24 13:40 Source: patient and RN notes reviewed Mode of arrival: ambulatory Limitations: no limitations History of Present Illness HPI Narrative: 49-year-old male presents Express Care complaining of right thoracic back pain. Patient stated the pain started this morning. 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 Patient denies any falls or injuries to his back. Patient reports the pain is primarily near the curves back on the right side. Patient denies any saddle anesthesia, loss of bowel or bladder function, weakness in his legs. Patient has a history of blood clots but is no longer on Coumadin. Patient took ibuprofen this morning with minimal relief. Patient denies any shooting pains down to his legs, no urinary symptoms, no fevers no body aches, chills. Related Data Allergies Allergy/AdvReac Type Severity Reaction Status Date / Time No Known Allergies Allergy Verified 10/11/24 13:31 Review of Systems Review of Systems: CONSTITUTIONAL: Denies fever, chills, or sweats. EYES: Denies visual changes, redness, or discharge. ENT: Denies rhinorrhea, congestion, sore throat, or otalgia. CARDIOVASCULAR: Denies chest pain, palpitations, or edema. RESPIRATORY: Denies cough or dyspnea. GASTROINTESTINAL: Denies abdominal pain, nausea, vomiting, or diarrhea. GENITOURINARY: Denies dysuria or hematuria. SKIN: Denies rash or itching. MUSCULOSKELETAL: Denies, joint pain, or myalgia. Positive for back pain. NEUROLOGIC: Denies headache, numbness, saddle anesthesia, loss of bowel or bladder function, or weakness. PSYCHIATRIC: Denies anxiety or depression. All other systems reviewed are negative, except as documented in HPI. [facility] Past Medical History Medical History Seizure disorder Depression Anxiety Pulmonary embolism Surgical History Surgical History History of open heart surgery Social History Social History Smoking packs per day: 0.5 Smoking cigarettes per day: 10.0 Smoking status: Current every day smoker Comments At the time of my signature, I reviewed and agree with the nursing past medical, surgical, social, and family history. There is no relevant family history pertinent to the patient complaint. Exam Narrative: GENERAL: This is a well-nourished, well-developed adult, in no apparent distress. They are non ill-appearing, nontoxic appearing. HEAD: normocephalic, atraumatic. EYES: Sclera clear/white. Conjunctiva normal. Vision is grossly intact. Extraocular movements intact EARS: External ears normal, Hearing grossly intact. NOSE: External nose normal THROAT: Mucous membranes moist, NECK: Neck supple, CARDIOVASCULAR: Regular rate and rhythm RESPIRATORY: Respiratory rate normal, respiratory effort nonlabored, no respiratory distress SKIN: warm, Dry, intact with no suspicious lesions or rash, good texture and turgor. NEURO: awake, alert, and oriented to person, place and time. There were no obvious focal neurologic abnormalities. EXTREMITIES: No joint tenderness, effusion, or edema noted. BACK: No CVA tenderness. Kyphosis present. No cervical, thoracic, lumbar point tenderness, no crepitus, no step-offs. Tenderness to palpation throughout the right upper back. Course Course Emergency Course: Portions of this record may have been created with voice recognition software Level of Care: Express Care Visit Vital Signs Vital signs: Vital Signs Temperature 98.9 F 10/11/24 13:26 Pulse Rate 84 10/11/24 13:26 Respiratory Rate 18 10/11/24 13:26 Blood Pressure 116/64 10/11/24 13:26 Pulse Oximetry 99 10/11/24 13:26 Oxygen Delivery Room Air 10/11/24 13:26 Temperature 98.9 F 10/11/24 13:26 Pulse Rate 84 10/11/24 13:26 Respiratory Rate 18 10/11/24 13:26 Blood Pressure 116/64 10/11/24 13:26 Pulse Oximetry 99 10/11/24 13:26 Oxygen Delivery Room Air 10/11/24 13:26 Reviewed MDM - Back Pain/Injury MDM Narrative Medical decision making narrative: Likely acute on chronic back pain due to patient's kyphosis. Will prescribe muscle relaxers lidocaine patches as needed for pain. Patient also advised to take Tylenol and ibuprofen as needed for pain as well. Discussed physical exam findings. Advised supportive measures and signs/symptoms to go to the ER. Pt is appropriate for outpt treatment and f/u. Differential Diagnosis Differential diagnosis: Likely lumbar radiculopathy, sciatica and other (Strain of thoracic region) Critical Care Time Critical Care Time Critical Care Time: No Discharge Plan Discharge Clinical Impression: Back pain Qualifiers: Back pain location: thoracic back pain Chronicity: chronic Back pain laterality: unspecified Qualified Code(s): M54.6 - Pain in thoracic spine Patient Disposition: Home Condition: Stable Instructions: Back Pain (ED) Additional Instructions: Take the muscle relaxer as directed. Do not drive or operate heavy machine, or work while taking the medication as it can make you drowsy. Use the lidocaine patches as directed. You may take Tylenol or ibuprofen as needed for pain. Please follow-up with your primary care provider 1 week if pain persist Rest. Avoid pushing, pulling, lifting --running or excessive walking-- or anything that worsens the symptoms Go to the emergency department if you develop any numbness or tingling to your groin, weakness in your legs, or any loss of bowel or bladder function. Patient Language: Scottish Prescriptions: New methocarbamol 750 mg tablet 750 mg PO TID PRN (Reason: Muscle spasms.) Qty: 12 0RF lidocaine 5 % adhesive patch,medicated 1 patch topical DAILY Qty: 15 0RF Rx Instructions: leave on most painful area for up to 12 hrs Follow-up/Referrals: PHYSICIAN,COMMERCIAL PRODUCTION EDITOR [Primary Care Provider] - Stand Alone Forms: Work/School Release IP Time of Disposition: 13:49
== END 2024-10-11 13:55 | disposition home or self-care (01) ==
DX: M54.6 Pain in thoracic spine (principal); F17.210 Nicotine dependence, cigarettes, uncomplicated; Q76.419 Congenital kyphosis, unspecified region; Z86.2 Personal history of diseases of the blood and blood-forming organs and certain disorders involving the immune mechanism; Z86.711 Personal history of pulmonary embolism
CPT/HCPCS: 99213; G0463

== ENCOUNTER 2024-11-19 10:57 | Emergency (ER) | payer SELFPAY ==
[2024-11-19 11:03] VITALS: BP 109/69; PULSE 93; RESP 14; TEMP 36.6; O2SAT 98
--- NOTE | 2024-11-19 11:18 | ED.BACK ---
HPI - Back Pain/Injury General Chief Complaint: Back Pain/Injury Stated Complaint: back pain Source: patient and RN notes reviewed Mode of arrival: ambulatory Limitations: no limitations History of Present Illness HPI Narrative: 49-year-old male presents Express Care complaining of left upper back pain last few days. Patient has a history of chronic back problems due to abnormal curvature of spine. Patient has been trying Tylenol, ibuprofen, ice and heat without relief. Patient denies any falls or injuries. Patient reports the pain is worse with movement of his left arm. Patient denies any chest pain, difficulty breathing, nausea, vomiting, jaw pain or any other symptoms. Related Data Allergies Allergy/AdvReac Type Severity Reaction Status Date / Time No Known Allergies Allergy Verified 11/19/24 10:58 Review of Systems Review of Systems: CONSTITUTIONAL: Denies fever, chills, or sweats. EYES: Denies visual changes, redness, or discharge. ENT: Denies rhinorrhea, congestion, sore throat, or otalgia. CARDIOVASCULAR: Denies chest pain, palpitations, or edema. RESPIRATORY: Denies cough or dyspnea. GASTROINTESTINAL: Denies abdominal pain, nausea, vomiting, or diarrhea. GENITOURINARY: Denies dysuria or hematuria. SKIN: Denies rash or itching. MUSCULOSKELETAL: Denies joint pain, or myalgia. Positive for back pain. NEUROLOGIC: Denies headache, numbness, or weakness. PSYCHIATRIC: Denies anxiety or depression. All other systems reviewed are negative, except as documented in HPI. [facility] Past Medical History Medical History Seizure disorder Depression Anxiety Pulmonary embolism Surgical History Surgical History History of open heart surgery Social History Social History Smoking packs per day: 0.5 Smoking cigarettes per day: 10.0 Smoking status: Current every day smoker Comments At the time of my signature, I reviewed and agree with the nursing past medical, surgical, social, and family history. There is no relevant family history pertinent to the patient complaint. Exam Narrative: GENERAL: This is a well-nourished, well-developed adult, in no apparent distress. They are non ill-appearing, nontoxic appearing. HEAD: normocephalic, atraumatic. EYES: Sclera clear/white. Conjunctiva normal. Vision is grossly intact. Extraocular movements intact EARS: External ears normal Hearing grossly intact. NOSE: External nose normal THROAT: Mucous membranes moist, NECK: Neck supple, non-tender without lymphadenopathy, masses or thyromegaly. CARDIOVASCULAR: Regular rate and rhythm without murmurs, gallops, or rubs. RESPIRATORY: Clear to auscultation. Breath sounds equal bilaterally. No wheezes, rales, or rhonchi. SKIN: warm, Dry, intact with no suspicious lesions or rash, good texture and turgor. NEURO: awake, alert, and oriented to person, place and time. There were no obvious focal neurologic abnormalities. EXTREMITIES: No joint tenderness, effusion, or edema noted. BACK: Kyphosis present. Tenderness to palpation to the left upper back just below the scapula. Pain elicited with movement of left arm. No CVA tenderness. No cervical, thoracic, lumbar point tenderness, crepitus or step-offs. Course Course Emergency Course: Portions of this record may have been created with voice recognition software Level of Care: Express Care Visit Vital Signs Vital signs: Vital Signs Temperature 97.9 F 11/19/24 11:03 Pulse Rate 93 11/19/24 11:03 Respiratory Rate 14 11/19/24 11:03 Blood Pressure 109/69 11/19/24 11:03 Pulse Oximetry 98 11/19/24 11:03 Oxygen Delivery Room Air 11/19/24 11:03 Temperature 97.9 F 11/19/24 11:03 Pulse Rate 93 11/19/24 11:03 Respiratory Rate 14 11/19/24 11:03 Blood Pressure 109/69 11/19/24 11:03 Pulse Oximetry 98 11/19/24 11:03 Oxygen Delivery Room Air 11/19/24 11:03 Reviewed MDM - Back Pain/Injury MDM Narrative Medical decision making narrative: Patient likely has pain related to his chronic back issues. Patient is in muscle relaxers work last time. Prescribe a course of methocarbamol with lidocaine patches. Discussed physical exam findings. Advised supportive measures and signs/symptoms to go to the ER. Pt is appropriate for outpt treatment and f/u. Differential Diagnosis Differential diagnosis: Likely lumbar radiculopathy, sciatica and thoracic back pain Critical Care Time Critical Care Time Critical Care Time: No Discharge Plan Discharge Clinical Impression: Acute left-sided thoracic back pain Patient Disposition: Home Condition: Stable Instructions: Chronic Back Pain (DC) Additional Instructions: Take the muscle relaxer as directed. Do not drive or operate heavy machine, or work while taking the medication as it can make you drowsy. Use the lidocaine patches as directed. You may take Tylenol or ibuprofen as needed, follow instructions on the bottle May also use ice or heat as needed, 20 minutes at a time 2 times a day. Please follow-up with your primary care provider if pain persist, you may need to see a pain specialist. Rest. Avoid pushing, pulling, lifting --running or excessive walking-- or anything that worsens the symptoms Go to the emergency department if you develop any numbness or tingling to your groin, weakness in your legs, or any loss of bowel or bladder function. Patient Language: Venezuelan Prescriptions: New methocarbamol 750 mg tablet 750 mg PO TID Qty: 12 0RF lidocaine 5 % adhesive patch,medicated 1 patch topical DAILY Qty: 15 0RF Rx Instructions: leave on most painful area for up to 12 hrs Follow-up/Referrals: PHYSICIAN,C[employer]A OPERATOR INSULATION [Primary Care Provider] - Stand Alone Forms: Work/School Release IP Time of Disposition: 11:14
== END 2024-11-19 11:18 | disposition home or self-care (01) ==
DX: M54.6 Pain in thoracic spine (principal); F17.210 Nicotine dependence, cigarettes, uncomplicated; Z86.711 Personal history of pulmonary embolism
CPT/HCPCS: 99213; G0463

== ENCOUNTER 2025-01-17 08:10 | Emergency (ER) | payer SELFPAY ==
--- NOTE | 2025-01-17 08:12 | ED.EAR ---
HPI - Ear Problem General Chief complaint: Ear Stated complaint: poss ear infection Time Seen by Provider: 01/17/25 08:12 Source: patient Mode of arrival: ambulatory Limitations: no limitations History of Present Illness HPI Narrative: Bruno is a 49-year-old male patient presenting to the clinic today with complaints possible ear infection. He reports he has had nasal congestion, occasional productive cough with green phlegm, chest congestion, and right ear pain x4 days. He reports he has felt feverish guessing that his temperature was about 100-101 degrees F. Has been taking [id number] cold medicine and Mucinex for his symptoms. Currently rates his pain at 8/10. States he feels pressure in his right ear. Denies any chest pain or shortness of breath. Current smoker since the age of 14-smokes half pack per day Related Data Allergies Allergy/AdvReac Type Severity Reaction Status Date / Time No Known Allergies Allergy Verified 01/17/25 08:12 Review of Systems Review of Systems: Pertinent positives per HPI. Patient denies any rash, headache, visual changes, dizziness, shortness of breath, chest pain, palpitations, nausea, vomiting, diarrhea, constipation, abdominal pain, or any urinary issues. [facility] Past Medical History Medical History Seizure disorder Depression Anxiety Pulmonary embolism Surgical History Surgical History History of open heart surgery Social History Social History Smoking packs per day: 0.5 Smoking cigarettes per day: 10.0 Smoking status: Current every day smoker Comments At the time of my signature, I reviewed and agree with the nursing past medical, surgical, social, and family history. There is no relevant family history pertinent to the patient complaint. Exam Narrative: General: Well-developed, well nourished, in no apparent distress Head: Normocephalic, atraumatic Eyes: Pupils equally round and reactive to light bilaterally, EOM intact, sclera and conjunctive clear, no discharge, lids normal Ears: TMs intact and congested, ear canals clear, no drainage, grossly hearing normal. Nose: Nares patent, clear nasal discharge, no inflammation, no sinus tenderness. Mouth: Oral pharynx red without lesions or masses, good dentition, MMM. Postnasal drip Neck: Supple, trachea midline, no enlargement of anterior or posterior cervical nodes, no thyroid masses or goiter palpable. Cardio: Regular rate and rhythm, s1 and s2 normal, no murmur appreciated. Resp: Expiratory wheezing and mid and upper lobes of the posterior lung jha, no rhonchi, rales, wheezing or rubs Course Course Emergency Course: Portions of this record may have been created with voice recognition software. Level of Care: Express Care Visit Vital Signs Vital signs: Vital Signs Temperature 36.6 C 01/17/25 08:18 Pulse Rate 76 01/17/25 08:18 Respiratory Rate 16 01/17/25 08:18 Blood Pressure 118/67 01/17/25 08:18 Pulse Oximetry 100 01/17/25 08:18 Oxygen Delivery Room Air 01/17/25 08:18 Temperature 36.6 C 01/17/25 08:18 Pulse Rate 76 01/17/25 08:18 Respiratory Rate 16 01/17/25 08:18 Blood Pressure 118/67 01/17/25 08:18 Pulse Oximetry 100 01/17/25 08:18 Oxygen Delivery Room Air 01/17/25 08:18 Vital signs reviewed Medical Decision Making MDM Narrative Medical decision making narrative: At the time of visit patient is resting comfortably on the exam table. Patient appears to be nontoxic. Complaints possible ear infection. He reports he has had nasal congestion, occasional productive cough with green phlegm, chest congestion, and right ear pain x4 days. He reports he has felt feverish guessing that his temperature was about 100-101 degrees F. Has been taking [id number] cold medicine and Mucinex for his symptoms. Currently rates his pain at 8/10. States he feels pressure in his right ear. Denies any chest pain or shortness of breath. Current smoker since the age of 14-smokes half pack per day. On exam patient bilateral TM congestion mild bulging without redness, clear nasal drainage, mild anterior turbinates inflammation, oral pharynx with postnasal drip, expiratory wheezing over bilateral lung jha, heart rates regular rate and rhythm. Vital signs are stable-patient is afebrile at this time. Plan: I suspect patient has URI/bronchitis/right otalgia. Prescription for prednisone and albuterol inhaler was sent to the pharmacy. Supportive measures were discussed with the patient and they voiced understanding discharge instructions and agrees to treatment plan. Return precautions reviewed Differential Diagnosis Differential Diagnosis: Otitis media, otitis externa, eustachian tube dysfunction, cerumen impaction, upper respiratory infection, serous otitis Vital Signs Vital Signs: Vital Signs Temperature 36.6 C 01/17/25 08:18 Pulse Rate 76 01/17/25 08:18 Respiratory Rate 16 01/17/25 08:18 Blood Pressure 118/67 01/17/25 08:18 Pulse Oximetry 100 01/17/25 08:18 Oxygen Delivery Room Air 01/17/25 08:18 Temperature 36.6 C 01/17/25 08:18 Pulse Rate 76 01/17/25 08:18 Respiratory Rate 16 01/17/25 08:18 Blood Pressure 118/67 01/17/25 08:18 Pulse Oximetry 100 01/17/25 08:18 Oxygen Delivery Room Air 01/17/25 08:18 Discharge Plan Discharge Clinical Impression: Bronchitis, Otalgia of right ear URI (upper respiratory infection) Qualifiers: URI type: unspecified URI Qualified Code(s): J06.9 - Acute upper respiratory infection, unspecified Patient Disposition: Home Condition: Stable Instructions: Antibiotic Form, Acute Bronchitis (ED), Earache (ED), Cold Symptoms (ED) Additional Instructions: Take prescription medications only as prescribed-prednisone and albuterol inhaler May take DayQuil/NyQuil for cold/flu symptoms Increase fluids and stay well hydrated May take Tylenol or motrin as directed on bottle for pain/fever May use Flonase 1 spray in each nare daily May take OTC antihistamines such as Zyrtec or Claritin daily as directed on bottle May apply Vicks vapor rub to chest to open sinuses Sinus rinses for congestion Cepacol spray, cough drops, throat lozenges, warm tea with honey/lemon, gargle salt water to soothe throat BRAT diet for diarrhea Clear liquids x 24 hours then advance as tolerated for nausea/vomiting Go to the ED if you develop a worsening in your condition- high fever not controlled by Tylenol or Motrin, dehydration, weakness, lethargy, shortness of breath, or chest pain. Follow up with your PCP in 3-5 days if symptoms persist. Patient Language: Bahamian Prescriptions: New prednisone 20 mg tablet 40 mg PO DAILY 5 Days Qty: 10 0RF albuterol sulfate 90 mcg/actuation HFA aerosol inhaler 2 puff inhalation Q4-6H PRN (Reason: shortness of breath or wheezing) 30 Days Qty: 8.5 0RF Follow-up/Referrals: UNKNOWN,DOCTOR [Primary Care Provider] Time of Disposition: 08:26 Quality NIHSS Nursing Documentation ED NIHSS nursing documentation: reviewed/agree
[2025-01-17 08:18] VITALS: BP 118/67; PULSE 76; RESP 16; TEMP 36.6; O2SAT 100
== END 2025-01-17 08:30 | disposition home or self-care (01) ==
DX: J40 Bronchitis, not specified as acute or chronic (principal); H92.01 Otalgia, right ear; J06.9 Acute upper respiratory infection, unspecified; F17.210 Nicotine dependence, cigarettes, uncomplicated
CPT/HCPCS: 99213; G0463

== ENCOUNTER 2025-04-11 08:14 | Emergency (ER) | payer SELFPAY ==
--- NOTE | 2025-04-11 08:17 | ED.URI ---
HPI - URI/Sore Throat General Chief Complaint: Upper Respiratory Infection Stated Complaint: Sinus/Congestion Time Seen by Provider: 04/11/25 08:15 Source: patient Mode of arrival: ambulatory Limitations: no limitations History of Present Illness HPI Narrative: Bruno is a 49-year-old male patient presenting to the clinic today with complaints of nasal congestion, sore throat, headache, body aches, fevers high as 102? F, and nonproductive cough x1 week. He reports he has been taking Tylenol for his symptoms. Denies any known exposure to anyone with COVID or flu. Denies any chest pain or shortness of breath. Related Data Allergies Allergy/AdvReac Type Severity Reaction Status Date / Time No Known Allergies Allergy Verified 04/11/25 08:17 Review of Systems Review of Systems: Pertinent positives per HPI. Patient denies any rash, visual changes, dizziness, shortness of breath, chest pain, palpitations, nausea, vomiting, diarrhea, constipation, abdominal pain, or any urinary issues. [facility] Past Medical History Medical History Seizure disorder Depression Anxiety Pulmonary embolism Surgical History Surgical History History of open heart surgery Social History Social History Smoking packs per day: 0.5 Smoking cigarettes per day: 10.0 Smoking status: Current every day smoker Comments At the time of my signature, I reviewed and agree with the nursing past medical, surgical, social, and family history. There is no relevant family history pertinent to the patient complaint. Exam Narrative: General: Well-developed, well nourished, in no apparent distress Head: Normocephalic, atraumatic Eyes: Pupils equally round and reactive to light bilaterally, EOM intact, sclera and conjunctive clear, no discharge, lids normal Ears: TMs intact and clear, ear canals clear, no drainage, grossly hearing normal. Nose: Nares patent, clear nasal discharge, moderate inflammation, no sinus tenderness. Mouth: Oral pharynx red without lesions or masses, good dentition, MMM. Postnasal drip Neck: Supple, trachea midline, no enlargement of anterior or posterior cervical nodes, no thyroid masses or goiter palpable. Cardio: Regular rate and rhythm, s1 and s2 normal, no murmur appreciated. Resp: Clear to auscultation bilaterally, no rhonchi, rales, wheezing or rubs Course Course Level of Care: Express Care Visit Vital Signs Vital signs: Vital Signs Temperature 36.4 C L 04/11/25 08:25 Pulse Rate 79 04/11/25 08:25 Respiratory Rate 20 04/11/25 08:25 Blood Pressure 120/55 L 04/11/25 08:25 Pulse Oximetry 100 04/11/25 08:25 Oxygen Delivery Room Air 04/11/25 08:25 Temperature 36.4 C L 04/11/25 08:25 Pulse Rate 79 04/11/25 08:25 Respiratory Rate 20 04/11/25 08:25 Blood Pressure 120/55 L 04/11/25 08:25 Pulse Oximetry 100 04/11/25 08:25 Oxygen Delivery Room Air 04/11/25 08:25 MDM MDM Narrative Medical decision making narrative: At the time of visit patient is resting comfortably on the exam table. Patient appears to be nontoxic. Complaints of nasal congestion, sore throat, headache, body aches, fevers high as 102? F, and nonproductive cough x1 week. He reports he has been taking Tylenol for his symptoms. Denies any known exposure to anyone with COVID or flu. Denies any chest pain or shortness of breath. On exam patient has bilateral TMs intact and clear, clear nasal drainage, oral pharynx mildly red, postnasal drip, lung sounds are clear, heart rates regular rate and rhythm. COVID, flu, and strep test were ordered. Labs: COVID, flu, and strep test were all negative in the clinic today. We will send strep for culture. Plan: I suspect patient has URI/pharyngitis/viral syndrome. Work note was given. Supportive measures were discussed with the patient and they voiced understanding discharge instructions and agrees to treatment plan. Return precautions reviewed Differential Diagnosis Differential Diagnosis: Differential diagnostic considerations for upper respiratory infection include upper respiratory infection, croup, otitis media, sinusitis, viral infection, bronchitis, influenza, pharyngitis, strep, uvulitis. Lab Data Labs: Lab Results 04/11/25 Range/Units 08:25 POC Influenza A Ag Negative (Negative) POC Influenza B Ag Negative (Negative) POC SARS CoV-2 Ag Negative (Negative) POC Grp A Strep Screen Negative (Negative) Discharge Plan Discharge Clinical Impression: Acute viral syndrome URI (upper respiratory infection) Qualifiers: URI type: unspecified URI Qualified Code(s): J06.9 - Acute upper respiratory infection, unspecified Pharyngitis Qualifiers: Pharyngitis/tonsillitis etiology: unspecified etiology Qualified Code(s): J02.9 - Acute pharyngitis, unspecified Patient Disposition: Home Condition: Stable Instructions: Antibiotic Form, Pharyngitis (ED), Viral Syndrome (ED), Cold Symptoms (ED) Additional Instructions: COVID, flu, and strep test were all negative in the clinic today. We will send strep for culture if this comes back positive we will contact him place you on antibiotics at that time. Increase fluids and stay well hydrated May take Tylenol or motrin as directed on bottle for pain/fever May use Flonase 1 spray in each nare daily May take OTC antihistamines such as Zyrtec or Claritin daily as directed on bottle May apply Vicks vapor rub to chest to open sinuses Sinus rinses for congestion Cepacol spray, cough drops, throat lozenges, warm tea with honey/lemon, gargle salt water to soothe throat BRAT diet for diarrhea Clear liquids x 24 hours then advance as tolerated for nausea/vomiting Go to the ED if you develop a worsening in your condition- high fever not controlled by Tylenol or Motrin, dehydration, weakness, lethargy, shortness of breath, or chest pain. Follow up with your PCP in 3-5 days if symptoms persist. Patient Language: [place] Prescriptions: No Action albuterol sulfate 90 mcg/actuation HFA aerosol inhaler 2 puff inhalation Q4-6H PRN (Reason: shortness of breath or wheezing) 30 Days Qty: 8.5 0RF Follow-up/Referrals: PHYSICIAN NOT ON STAFF,NONSTAFF [Primary Care Provider] Stand Alone Forms: Work/School Release IP Time of Disposition: 08:54 Quality NIHSS Nursing Documentation ED NIHSS nursing documentation: reviewed/agree
[2025-04-11 08:25] VITALS: BP 120/55; PULSE 79; RESP 20; TEMP 36.4; O2SAT 100
[2025-04-11 08:50] LABS: EDCOVIDSCREEN Negative (Negative); EDINFLUASCREEN Negative (Negative); EDINFLUBSCREEN Negative (Negative); EDSTREPNEGPOS1 Negative (Negative)
== END 2025-04-11 09:15 | disposition home or self-care (01) ==
PROVIDERS: Emergency Provider Nurse Practitioner Family
DX: J06.9 Acute upper respiratory infection, unspecified (principal); B34.9 Viral infection, unspecified; Z20.822 Contact with and (suspected) exposure to COVID-19; F41.8 Other specified anxiety disorders
CPT/HCPCS: 87081; 87426; 87804; 87880; 99213; G0463